=== PATIENT | male | born 1980 | race Caucasian/White ===

== ENCOUNTER 2024-09-01 17:13 | Emergency (ER) | payer OTHER, SELFPAY ==
[2024-09-01 17:30] VITALS: BP 150/94; PULSE 79; RESP 20; TEMP 36.4; O2SAT 100
--- OUTSIDE RECORDS SUMMARY | 2024-09-01 17:30 | XMS_ITS | Encounter Summary ---
Author Organization [facility] Address [address] [place] [address] Care Team Providers Care Nursery Nurse Name Role Phone Franki Scott MD Primary Care Provider [phone] Franki Scott MD Primary Care Provider [phone] Franki Scott MD Unavailable [phone] Franki Scott MD Primary Care Provider + [phone] Niki Encios NP Unavailable Encounter Details Date Type Department Care Team (Late st Contact Info) Description 10/25/2008 Orders Only [facility] Health Information Management [address] [place] [address] Scanning, Provider Social History Tobacco Use Types Packs/Day Years Used Date Smoking Tobacco: Never Assessed Sex and Gender Information Value Date Recorded Sex Assigned at Not on file 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 Gender Identity Not on file Sexual Orientation Not on file documented as of this encounter Plan of Treatment Not on file documented as of this encounter Procedures Procedure Name Priority Date/Time Associated Diagnosis Comments GI - RESULT 10/25/2008 documented in this encounter Results * GI - RESULT (10/25/2008) Anatomical Region Laterality Modality Other us Provider Scanning Edited Result - Final documented in this encounter Visit Diagnoses Not on filedocumented in this encounter Care Teams Nursery Nurse Relationship Specialty Start Date End Date Franki Scott MD [address] [place] [address] PCP - General 08/12/06 12/15/16 Franki Scott MD [address] [place] [address] PCP - General Family Medicine 12/16/16 06/17/17 Franki Scott MD [address] [place] [address] PCP - General Family Medicine 06/18/17 Franki Scott MD [address] [place] [address] 12/16/16 Niki Enciso, SHEMAR [address] [place] [address] Nurse Practitioner Nurse Practitioner 06/20/18 documented as of this encounter
--- OUTSIDE RECORDS SUMMARY | 2024-09-01 17:30 | XMS_ITS | Referral Summary ---
Author Organization [address] Address [address] [place] [address] Care Team Providers Care Land Surveyor Assistant Name Role Phone Franki Scott MD Unavailable [phone] Franki Scott MD Primary Care Provider [phone] Niki Enciso NP Unavailable [phone] Allergies Active Allergy Reactions Criticality Noted Date Comments Cat Dander Rhinitis Low 02/04/2022 Pollen Extracts Rhinitis Low 02/04/2022 Medications fluticasone (FLONASE) 50 mcg/actuation nasal spray inhale 1 spray by Intranasal route every 12 hours in each nostril 0 spray 0 6 Active multivitamin capsule Take 1 capsule by mouth daily OTC Active cetirizine (ZyrTEC) 10 mg tablet Take 1 tablet (10 mg total) by mouth daily Active dupilumab (DUPIXENT) syringe Inject 1.14 mL (200 mg total) under the skin every 14 (fourteen) days Active budesonide-formot Jimmy (SYMBICORT) 160-4.5 mcg/actuation inhaler INHALE 2 PUFFS BY MOUTH EVERY MORNING AND EVERY EVENING 10.2 g 1 4 Active Dupixent Pen pen injector 2 mL (300 mg total) 4 Active lisinopriL (PRINIVIL,ZESTRIL ) 20 mg tabletIndications :Essential hypertension TAKE 1 TABLET BY MOUTH DAILY 90 tablet 1 4 Active Active Problems Problem Noted Date Diagnosed Date Physical exam, annual 03/30/2024 Assessment & Plan (03/30/2024 8:26 AM CDT): Preventive exam; reviewed recommended preventive screenings and vaccinations. Encourage annual flu vaccine. Wear sunscreen/protective clothing when outdoors. Vitamin D deficiency 03/28/2023 Assessment & Plan (03/30/2024 8:22 AM CDT): Recommend to continue vitamin d supplement. Assessment & Plan (03/28/2023 8:39 AM CDT): Vitamin d=25, not currently taking any supplement. Will check vitamin d level with lab work. BMI 26.0-26.9,adult 02/04/2022 Assessment & Plan (03/30/2024 9:07 AM CDT): Patient with active and healthy lifestyle. Exercising regularly. Assessment & Plan (03/28/2023 8:31 AM CDT): Discussed healthy diet and importance of regular physical activity. Assessment & Plan (02/04/2022 1:48 PM CDT): Discussed healthy diet and importance of regular physical activity. BMI is acceptable for this patient. Nasal polyps 10/05/2021 Assessment & Plan (03/28/2023 8:37 AM CDT): Managed by ENT, improving with use of dupixent. Denies any recent URI or s/s of sinusitis. Assessment & Plan (10/05/2021 9:00 AM CDT): Blood allergy testing - call with results Cefdinir with a meal twice daily CT Sinus - call with results and plan surgery from there Risks and complications include anesthesia, bleeding, infection, injury to surrounding structures including brain with csf leak, eyes with vision changes, nasal mucosa, atrophic rhinitis, benign versus malignant pathology, no guarantee that sense of smell will return, need for further surgery. Continue Cetirizine and Flonase 2 sprays into each nostril while looking down over the sink, do not sniff in or blow nose after use for at least 30 minutes Skin lesion of face 01/26/2021 Assessment & Plan (01/26/2021 1:03 PM CDT): Suspicious skin lesion. Present for 2-3 years, reports intermittent bleeding. Given referral to dermatology. Fatigue 01/26/2021 Annual physical exam 01/26/2021 Assessment & Plan (03/28/2023 8:30 AM CDT): Preventive exam; reviewed recommended preventive screenings and vaccinations. Encourage annual flu vaccine. Wear sunscreen/protective clothing when outdoors. -c-scope age 45 Assessment & Plan (02/04/2022 1:49 PM CDT): 1. Eat a healthy diet: focus on lean meats and proteins, more fruits, vegetables and whole grains and low in sugars and fats. Limit red meat and avoid processed meat. 2. Maintain a healthy weight; avoid being overweight. Aim for a normal body mass index (BMI) of 18.5-24.9. Help learning to eat healthier, we can set up appointment with value stream manager/metal casket assembler. 3. Have an active lifestyle, strive for 30 minutes of moderate exercise 5 times a week and strength or resistance training at least twice a week. 4. Use broad-spectrum (UVA+UVB) sunscreen with SPF 30 or greater, is water resistant, limit time spent in the sun (10 am-4pm), wear hat, wear UV protective clothing, wear sunglasses. Never use a tanning bed. Skin that was irradiated may be more sensitive over your lifetime. 5. Does not smoke or chew tobacco. 6. Limit alcohol intake, 2 drinks per day for a man. Assessment & Plan (01/26/2021 1:06 PM CDT): Preventive exam; reviewed recommended preventive screenings and vaccinations. Encourage annual flu vaccine. Wear sunscreen/protective clothing when outdoors. Mixed hyperlipidemia 02/08/2020 Assessment & Plan (03/30/2024 9:06 AM CDT): The 10-year ASCVD risk score (Fadumo FRIED, et al., 2019) is: 2.9% Values used to calculate the score: Age: 43 years Sex: Male Is Non- : No Diabetic: No Tobacco smoker: No Systolic Blood Pressure: 112 mmHg Is BP treated: Yes HDL Cholesterol: 37 mg/dL Total Cholesterol: 233 mg/dL Reviewed labs with patient. Recommended starting a cholesterol-lowering medication. Patient with previous side effects to atorvastatin, experienced nightmares. Patient would like to further consider starting cholesterol medication and will reach out to our office if he wishes to proceed. Would recommend alternate statin. Assessment & Plan (03/28/2023 8:36 AM CDT): The 10-year ASCVD risk score (Fadumo FRIED, et al., 2019) is: 3.7% Values used to calculate the score: Age: 42 years Sex: Male Is Non- : No Diabetic: No Tobacco smoker: No Systolic Blood Pressure: 124 mmHg Is BP treated: Yes HDL Cholesterol: 36 mg/dL Total Cholesterol: 248 mg/dL Reviewed ASCVD risk 3.7%, patient with strong family history of heart disease. Previously taking lipitor, d/c about 3 years ago. Assessment & Plan (02/04/2022 2:24 PM CDT): Not on any statins. Strong family h/o CAD (both maternal & paternal) Discussed increasing fiber, fish oil. Will recheck lipid this fall. Aware that if lipid panel remains elevated--he will need statin therapy. Assessment & Plan (01/26/2021 12:40 PM CDT): Has been off statin therapy 2/2 side effects of nightmares. Personal and family h/o hyperlipidemia. Aware of increased risk of heart disease and stroke. 02/08/20 EC=783 HDL=36 HG=866 JDE=177 TC/HLD=6.8 Outstanding labs from 01/2020. Patient agreeable to blood work today, discussed medication if no improvement from previous labs. Assessment & Plan (02/08/2020 10:52 AM CDT): Has not been taking statin for some time. Strong family h/o hyperlipidemia. 03/20/18 ZX=021 HDL=34 DU=867 EGG=809 TC/HLD=6.0 02/08/20 RJ=492 HDL=36 ZA=061 IRR=618 TC/HLD=6.8 Poor diet as of late. Discussed diet changes. Had clean cardiac cath . Lab req given for repeat labs in 3 mos. Will discussed statin therapy at that time if no improvement in lipid panel. Essential hypertension 02/08/2020 Assessment & Plan (03/30/2024 9:06 AM CDT): Blood pressure is well controlled, continue present management with lisinopril. Assessment & Plan (03/28/2023 8:31 AM CDT): Condition is stable Discussed/ordered labs, encouraged healthy, low carbohydrate lifestyle and at least 150min/week of exercise, continue on lisinopril 20 mg daily. Assessment & Plan (02/04/2022 1:49 PM CDT): Lisinopril 20mg daily. The blood pressure is under good control. Ideally it should be under 130/80. Continue medications without adjustment. Continue efforts to eat well (4-5 fruits and veggies) daily and exercise for about 30 min nearly every day. Watch salt intake, keeping to less than 2000mg per day. Limit alcohol. Include strategies to cope with stress. Labs ordered today; will contact w/results once received. Assessment & Plan (01/26/2021 1:05 PM CDT): Stopped lisinopril 1 week ago. Denies any SEs while taking. Would like to work on diet and avoid medication if possible. Checking BP at home. Will call if SBP >140, DBP>90. Continue effort to improve diet-increase fruits/vegetables. Watch sodium intake <2000mg daily Labs ordered; will notify of results. Patient agreeable to restart lisinopril if elevated at home or at f/u in 6 months. Discussed consequences of untreated HTN, patient verbalized understanding. Assessment & Plan (02/08/2020 10:46 AM CDT): The blood pressure is under good control. Ideally it should be under 130/80. Continue medications without adjustment. Continue efforts to eat well (4-5 fruits and veggies) daily and exercise for about 30 min nearly every day. Watch salt intake, keeping to less than 2000mg per day. Limit alcohol. Include strategies to cope with stress. Labs ordered today; will contact w/results once received. Abnormal ECG during exercise stress test 018 Refused influenza vaccine 05/29/2018 Assessment & Plan (05/02/2019 10:38 AM CDT): Discussed and the patient refuses immunization today. Educated regarding the need to vaccinate for personal protection and to limit the viruses in the community to protect those most vulnerable. Atopic rhinitis 11/24/2013 Overview (10/14/2016): ALLERGIC RHINITIS NOS Assessment & Plan (10/05/2021 9:01 AM CDT): Blood allergy testing - call with results Cefdinir with a meal twice daily CT Sinus - call with results and plan surgery from there Risks and complications include anesthesia, bleeding, infection, injury to surrounding structures including brain with csf leak, eyes with vision changes, nasal mucosa, atrophic rhinitis, benign versus malignant pathology, no guarantee that sense of smell will return, need for further surgery. Continue Cetirizine and Flonase 2 sprays into each nostril while looking down over the sink, do not sniff in or blow nose after use for at least 30 minutes Resolved Problems Problem Noted Date Diagnosed Date Resolved Date Pelvic pain 05/01/2019 02/08/2020 Assessment & Plan (05/02/2019 10:39 AM CDT): Us pelvis complete & labs ordered. Will call w/results once rec'd. Will have completed at [facility]. Reviewed red flags; what would prompt ED for more emergent eval versus waiting for testing to be completed. Lower abdominal pain 05/01/2019 020 Assessment & Plan (05/02/2019 10:40 AM CDT): Us pelvis complete & labs ordered. Will call w/results once rec'd. Will have completed at [facility]. Reviewed red flags; what would prompt ED for more emergent eval versus waiting for testing to be completed. Dicyclomine refilled. Reports that it has helped w/cramping in past. Alternating constipation and diarrhea 05/01/2019 02/08/2020 Assessment & Plan (05/02/2019 10:41 AM CDT): Referral to [facility] GI for eval r/t alternating constipation/diarrhea. Low fiber intake. Aware to increase fiber (does not eat many vegetables/fruits), discussed otc fiber supplements. Contact info for [facility] Gi given to mr Dykes. Aware that they will call him to schedule. BMI 26.0-26.9,adult 08/02/2018 02/05/20 Assessment & Plan (01/25/2021 10:07 AM CDT): Discussed simple dietary changes and importance of regular exercise/physical activity. BMI is acceptable for patient. Assessment & Plan (02/08/2020 10:46 AM CDT): Running 1-4 miles 4x/wk. Discussed healthy diet and importance of regular physical activity. BMI is acceptable for this patient. Assessment & Plan (05/02/2019 10:38 AM CDT): BMI is acceptable for this patient. Discussed healthy diet and importance of regular physical activity. Assessment & Plan (08/02/2018 1:00 PM PROCESS TANK TENDER): BMI wnl Continue exercise and healthy diet Anxiety 05/07/2018 01/26/2021 Encounters for administrative purposes 10/25/2016 02/08/2020 Overview (12/03/2016): Encounter for administrative examinations Acute sinusitis 01/01/2016 02/08/2020 Overview (10/14/2016): Acute sinusitis with symptoms > 10 days Assessment & Plan (08/02/2018 9:16 AM PROCESS TANK TENDER): Complete antibiotics and other meds as prescribed Take OTC decongestants for congestion- Sudafed/Mucinex Motrin/Tylenol for pain/fever If you have high blood pressure or any kidney disease use Tylenol only. Take an Antihistamines like Zyrtec or Claritin or Ladan daily at bedtime for the next 2-3 weeks. Can take Benadryl at bedtime for the next 3-4 days for immediate relief of runny nose and may help with sinus headache. Try saline nasal spray irrigations 2-4 times a day or try using Diane pot as directed daily then use your Flonase or other corticosteroid nasal spray every day to decrease the swelling and inflammation in your nasal cavities. Drink plenty of water & get plenty of rest A humidifier may also help with congestion Follow up with your PCP in 3-5 days if you are not getting better Immunizations Immunization Administration Dates Next Due Influenza, Split 09/05/2013,09/05/2013 Influenza, Unspecified 03/30/2024(Deferr ed: Patient Refused),04/10/2023(Deferred: Patient Refused),03/28/2023(Deferred: Patient Refused),04/29/2022(Deferred: Patient Refused),04/10/2022(Deferred: Patient Refused),04/10/2022(Deferred: Patient Refused),02/04/2022(Deferred: Patient Refused),03/11/2021(Deferred: Patient Refused),04/10/2020(Deferred: Patient Refused),02/08/2020(Deferred: Patient Refused),05/01/2019(Deferred: Patient Refused),05/01/2019(Deferred: Patient Refused),08/02/2018(Deferred: Patient Refused),07/11/2018(Deferred: Patient Refused),05/29/2018(Deferred: Patient Refused),05/02/2018(Deferred: Patient Refused),05/02/2018(Deferred: Patient Refused),05/02/2018(Deferred: Patient Refused),02/28/2018(Deferred: Patient Refused),07/12/2017(Deferred: Patient Refused),07/12/2017(Deferred: Patient Refused),07/12/2016(Deferred: Patient Refused),07/12/2016(Deferred: Patient Refused),07/12/2016(Deferred: Patient Refused),07/11/2016(Deferred: Patient Refused) Tdkimi 06/17/2009 Social History Tobacco Use Types Packs/Day Years Used Date Smoking Tobacco: Never Smokeless Tobacco: Never Tobacco Cessation:Counseling Given: Not Answered Alcohol Use Standard Drinks/Week Comments No 0 (1 standard drink = 0.6 oz pur e alcohol) PHQ-2 Answer Date Recorded PHQ-2 Total Score (If total score is 3 or more points, staff should administer the PHQ-9) 0 03/30/2024 Sex and Gender Information Value Date Recorded Sex Assigned at Not on file 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 Gender Identity Not on file Sexual Orientation Not on file Last Filed Vital Signs Vital Sign Reading Time Taken Comments Blood Pressure 112/84 03/30/2024 7:52 AM CDT Pulse 71 03/30/2024 7:52 AM CDT Temperature 36.8 C (98.3 F) 03/30/2024 7:52 AM CDT Respiratory Rate 16 03/30/2024 7:52 AM CDT Oxygen Saturation 98% 03/30/2024 7:52 AM CDT Inhaled Oxygen Concentration - - Weight 88.9 kg (196 lb) 03/30/2024 7:52 AM CDT Height 182.9 cm (6' 0.01 ) 03/30/2024 7:52 AM CD T Body Mass Index 26.58 03/30/2024 7:52 AM CDT Plan of Treatment Not on file Insurance [facility] HMO/POS [facility] CHOICE [place] [address] [place] [address] [facility] CHOICE PLUS [facility] CHOICE PLUS Advance Directives For more information, please contact: [phone] * Full Code (Latest Code Status on File) Date Activated Date Inactivated Comments 06/20/2018 4:41 PM 06/20/2018 9:05 PM Care Teams Land Surveyor Assistant Relationship Specialty Start Date End Date Franki Scott MD [address] [place] [address] PCP - General Family Medicine 06/18/17 Franki Scott MD [address] [place] [address] 12/16/16 Niki Enciso NP [address] [place] [address] Nurse Practitioner Nurse Practitioner 06/20/18
--- OUTSIDE RECORDS SUMMARY | 2024-09-01 17:30 | XMS_ITS | Clinical Summary ---
Author Organization [address] Address [address] [place] [address] Care Team Providers Care Planning Engineer Name Role Phone Franki Scott MD Unavailable [phone] Franki Scott MD Primary Care Provider [phone] Niki Enciso NP Unavailable [phone] Allergies Active Allergy Reactions Criticality Noted Date [...] healthier, we can set up appointment with amusement park ride mechanic/manufacturing test engineer. 3. Have an active lifestyle, strive for [...] risk of heart disease and stroke. 02/08/20 DW=680 HDL=36 SZ=555 DHE=937 TC/HLD=6.8 Outstanding labs from 01/2020. Patient agreeable to blood work today, discussed medication if no improvement from previous labs. Assessment & Plan (02/08/2020 10:52 AM CDT): Has not been taking statin for some time. Strong family h/o hyperlipidemia. 03/20/18 ZX=358 HDL=34 AR=621 EMX=863 TC/HLD=6.0 02/08/20 DX=274 HDL=36 VS=288 MVB=347 TC/HLD=6.8 Poor diet as of late. Discussed [...] w/results once rec'd. Will have completed at [facility]. Reviewed red flags; what would prompt ED for more emergent eval versus waiting for testing to be completed. Lower abdominal pain 05/01/2019 020 Assessment & Plan (05/02/2019 10:40 AM CDT): Us pelvis complete & labs ordered. Will call w/results once rec'd. Will have completed at [facility]. Reviewed red flags; what would prompt ED for more emergent eval versus waiting for testing to be completed. Dicyclomine refilled. Reports that it has helped w/cramping in past. Alternating constipation and diarrhea 05/01/2019 02/08/2020 Assessment & Plan (05/02/2019 10:41 AM CDT): Referral to [facility] GI for eval r/t alternating constipation/diarrhea. Low fiber intake. Aware to increase fiber (does not eat many vegetables/fruits), discussed otc fiber supplements. Contact info for [facility] Gi given to mr Dykes. [...] activity. Assessment & Plan (08/02/2018 1:00 PM WOOD CALKER): BMI wnl Continue exercise and healthy diet Anxiety 05/07/2018 01/26/2021 Encounters for administrative purposes 10/25/2016 02/08/2020 Overview (12/03/2016): Encounter for administrative examinations Acute sinusitis 01/01/2016 02/08/2020 Overview (10/14/2016): Acute sinusitis with symptoms > 10 days Assessment & Plan (08/02/2018 9:16 AM WOOD CALKER): Complete antibiotics and other meds as prescribed [...] Refused),07/12/2016(Deferred: Patient Refused),07/12/2016(Deferred: Patient Refused),07/11/2016(Deferred: Patient Refused) Td, adsorbed 06/17/2009 Medical History Medical History Date Comments Hx Other Medical Allergies, seas onal; Comments: FRANCISCO 07/23/2014 - Family History Medical History Relation Name Comments Coronary artery disease Father Lizzie nary artery disease; Heart disease Other Heart disease; Coronary artery disease Paternal Grandfather Coronary artery disease; Relation Name Status Comments Father Alive Other Paternal Grandfather Alive Social History Tobacco Use Types Packs/Day Years [...] on file Legal Sex Male 10:57 AM WOOD CALKER Gender Identity Not on file Sexual Orientation Not on file Obstetrics History Last Filed Vital Signs Vital Sign Reading [...] 03/30/2024 7:52 AM CDT Plan of Treatment Health Maintenance Due Date Last Done Comments Hepatitis C Screening 1980 Varicella Vaccines (1 of 2 - 13+ 2-dose series) 1993 Hepatitis B Screening 1998 DTaP/Tdap/Td Vaccine (1 - Tdap) 06/18/2009 06/17/2009 Influenza Vaccine (#1) 2025 09/05/2013, 2013 Postponed from 03/11/2024 (Patient declined, but will receive in the future) Depression Screening 03/30/2025 03/30/2024, 03/28/2023, 04/29/2022, Additional history exists Regular Well Visit/Exam 18-64 03/30/2025 03/30/2024, 03/28/2023, 02/04/2022, Additional history exists HPV Vaccines Aged Out No longer eligi ble based on patient's age to complete this topic Pneumococcal vaccine <65 Aged Out No longer eligible based on patient's age to complete this topic Insurance [facility] HMO/POS Member Subscriber Plan / Payer (Ef fective 2011-Present) Name:She Dykes Relation to Subscriber:Self Name:SHE DYKES Payer ID:[id number] (NAIC) Type:MANAGED CARE OTHER Address: [address] [facility] CHOICE PLUS [facility] CHOICE PLUS Member Subscriber Plan / Payer (Ef fective 2022-Present) Name:She Dykes Relation to Subscriber:Self Name:She Dykes Payer ID:[id number] (NAIC) Type:[facility] HMO/PPO Address: [place] [id number] [facility] CHOICE PLUS Advance Directives For more information, please contact: [phone] * Full Code (Latest Code Status on File) Date Activated Date Inactivated Comments 06/20/2018 4:41 PM 06/20/2018 9:05 PM Care Teams Planning Engineer Relationship Specialty Start Date End Date Franki Scott MD [address] [place] [address] PCP - General Family Medicine 06/18/17 Franki Scott MD [address] [place] [address] 12/16/16 Niki Enciso NP [address] [place] [address] Nurse Practitioner Nurse Practitioner 06/20/18
--- OUTSIDE RECORDS SUMMARY | 2024-09-01 17:30 | XMS_ITS | Encounter Summary ---
Author Organization [facility] Address [address] [place] [address] Care Team Providers Care Bookstore Manager Name Role Phone Franki Scott MD Primary Care Provider + [phone] Franki Scott MD Primary Care Provider [phone] Franki Scott MD Unavailable [phone] Franki Scott MD Primary Care Provider + [phone] Niki Enciso NP Unavailable [phone] Encounter Details Date Type Department Care Team (Late st Contact Info) Description 09/09/2008 Orders Only [facility] [place] Health Information Management [address] [place] [address] Scanning, Provider Social History Tobacco Use Types Packs/Day Years Used Date Smoking Tobacco: Never Assessed Sex and Gender Information Value Date Recorded Sex Assigned at Not on file 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 Gender Identity Not on file Sexual Orientation Not on file documented as of this encounter Plan of Treatment Not on file documented as of this encounter Procedures Procedure Name Priority Date/Time Associated Diagnosis Comments SCAN - LABS 09/09/2008 documented in this encounter Results * SCAN - LABS (09/09/2008) us Provider Scanning Edited Result - Final documented in this encounter Visit Diagnoses Not on filedocumented in this encounter Care Teams Bookstore Manager Relationship Specialty Start Date End Date Franki Scott MD [address] [place] [id number] PCP - General 08/12/06 12/15/16 Franki Scott MD [address] [place] [address] PCP - General Family Medicine 12/16/16 06/17/17 Franki Scott MD [address] [place] [address] PCP - General Family Medicine 06/18/17 Franki Scott MD [address] [place] [address] 12/16/16 Niki Enciso NP [address] [place] [address] Nurse Practitioner Nurse Practitioner 06/20/18 documented as of this encounter
--- OUTSIDE RECORDS SUMMARY | 2024-09-01 17:30 | XMS_ITS | Encounter Summary ---
Author Organization [facility] Address [address] [place] [address] Care Team Providers Care Architectural Project Manager Name Role Phone Franki Scott MD Primary Care Provider + [phone] Franki Scott MD Primary Care Provider [phone] Franki Scott MD Unavailable [phone] Franki Scott MD Primary Care Provider + [phone] Niki Enciso NP Unavailable [phone] Encounter Details Date Type Department Care Team (Late st Contact Info) Description 01/21/2009 Orders Only [facility] [place] Health Information Management [address] [place] [address] Scanning, Provider Social History Tobacco Use Types Packs/Day Years Used Date Smoking Tobacco: Never Assessed Sex and Gender Information Value Date Recorded Sex Assigned at Not on file 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[employer] Gender Identity Not on file Sexual Orientation Not on file documented as of this encounter Plan of Treatment Not on file documented as of this encounter Procedures Procedure Name Priority Date/Time Associated Diagnosis Comments SCAN - PATHOLOGY 01/21/2009 documented in this encounter Results * SCAN - PATHOLOGY (01/21/2009) us Provider Scanning Edited Result - Final documented in this encounter Visit Diagnoses Not on filedocumented in this encounter Care Teams Architectural Project Manager Relationship Specialty Start Date End Date Franki Scott MD [address] [place] [id number] PCP - General 08/12/06 12/15/16 Franki Scott MD [address] [place] [address] PCP - General Family Medicine 12/16/16 06/17/17 Franki Scott MD [address] [place] [address] PCP - General Family Medicine 06/18/17 Franki Scott MD [address] [place] [address] 12/16/16 Niki Enciso NP [address] [place] [address] Nurse Practitioner Nurse Practitioner 06/20/18 documented as of this encounter
--- OUTSIDE RECORDS SUMMARY | 2024-09-01 17:30 | XMS_ITS | Encounter Summary ---
Author Organization [facility] Address [address] [place] [address] Care Team Providers Care Action Installer Name Role Phone Franki Scott MD Primary Care Provider + [phone] Franki Scott MD Primary Care Provider [phone] Franki Scott MD Unavailable [phone] Franki Scott MD Primary Care Provider + [phone] Niki Encios NP Unavailable [phone] Encounter Details Date Type Department Care Team (Late st Contact Info) Description 10/18/2008 Orders Only [facility] [place] Health Information Management [address] [place] [address] Scanning, Provider Social History Tobacco Use Types Packs/Day Years Used Date Smoking Tobacco: Never Assessed Sex and Gender Information Value Date Recorded Sex Assigned at Not on file 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 Gender Identity Not on file Sexual Orientation Not on file documented as of this encounter Plan of Treatment Not on file documented as of this encounter Procedures Procedure Name Priority Date/Time Associated Diagnosis Comments SCAN - RADIOLOGY/IMAGING 10/18/2008 documented in this encounter Results * SCAN - RADIOLOGY/IMAGING (10/18/2008) Anatomical Region Laterality Modality Other us Provider Scanning Edited Result - Final documented in this encounter Visit Diagnoses Not on filedocumented in this encounter Care Teams Action Installer Relationship Specialty Start Date End Date Franki Scott MD [address] [place] [address] PCP - General 08/12/06 12/15/16 Franki Scott MD [address] [place] [address] PCP - General Family Medicine 12/16/16 06/17/17 Franki Scott MD [address] [place] [address] PCP - General Family Medicine 06/18/17 Franki Scott MD [address] [place] [address] 12/16/16 Niki Enciso, SHEMAR [address] [place] [address] Nurse Practitioner Nurse Practitioner 06/20/18 documented as of this encounter
--- NOTE | 2024-09-01 17:39 | ECG_ITS ---
Test Date: 2024-09-01 17:43:33 Measurements Intervals [place] Rate: 78 P: 59 ID: [id number] QRS: 49 QRSD: 88 T: 32 QT: 352 QTc: 402 Interpretive Statements SINUS RHYTHM BORDERLINE ST-T WAVE ABNORMALITY- INFERIOR LEADS BORDERLINE ECG No previous ECG available for comparison Electronically Signed On 09-02-2024 07:01:27 SHEET MANUFACTURING SUPERVISOR by Antonino Child D.O.
--- NOTE | 2024-09-01 17:54 | ED.CHESTPAIN ---
HPI - Chest Pain General Chief Complaint: Chest Pain Stated Complaint: stomach/chest pain Source: patient Mode of arrival: ambulatory Limitations: no limitations History of Present Illness HPI narrative: Patient presents for evaluation of left-sided chest pain. Symptom onset around 1500 yesterday upon arriving for the day. Pain was initially intermittent but has been constant today since approximately 1430 after he had some steak and vegetables. He reports increase in gas production and is wondering whether he has an ulcer. He describes the pain as pinching and rates it 2/10 in severity. Pain radiates circumferentially into the left side of his back. He denies any associated cough or shortness of breath. He does have an underlying history of hypertension for which he takes lisinopril. He also has underlying hyperlipidemia which is not being treated with medication. His father had a myocardial infarction at the age of 46. Patient is a former smoker. He does not consume alcohol regularly. He does not use illicit drugs. He notices that his pain does worsen with certain movements. Related Data Home Medications ?Medication ?Instructions ?Recorded ?Confirmed ?Last Taken ?Type budesonide-formoterol HFA 160 inhalation 09/01/24 Unknown History mcg-4.5 mcg/actuation aerosol inhaler (Symbicort) lisinopril 20 mg tablet mg 09/01/24 Unknown History Allergies Allergy/AdvReac Type Severity Reaction Status Date / Time No Known Allergies Allergy Verified 09/01/24 17:37 Review of Systems Review of Systems: CONSTITUTIONAL: Denies fever, chills, or sweats. EYES: Denies visual changes, redness, or discharge. ENT: Denies rhinorrhea, congestion, sore throat, or otalgia. CARDIOVASCULAR: Reports left-sided chest pain with radiation into the left side of his back RESPIRATORY: Denies cough or dyspnea. GASTROINTESTINAL: Reports increased gas production. Denies abdominal pain, nausea, vomiting, or diarrhea. GENITOURINARY: Denies dysuria or hematuria. SKIN: Denies rash or itching. MUSCULOSKELETAL: Denies back pain, joint pain, or myalgia. NEUROLOGIC: Denies headache, numbness, dizziness, or weakness. PSYCHIATRIC: Denies anxiety or depression. [facility] Past Medical History Medical History Chronic bronchitis Hyperlipidemia Hypertension Surgical History Surgical History No pertinent past surgical history Family History Family History Father Acute myocardial infarction Coronary artery disease Social History Social History Smoking status: Former smoker Tobacco type: cigarettes Substance use: never Living arrangements: with family Gender identity (if verbalized by the patient): Male Sexual Orientation (if Verbalized by the Patient): Straight or Heterosexual Spiritual care concerns: No Exam Narrative: GENERAL: Well-appearing, well-nourished, and in no acute distress. HEAD: Normocephalic, atraumatic. EYES: PERRLA and EOMI. ENT: Nares clear, no rhinorrhea or epistaxis. Mucous membranes moist. Oropharynx without tonsillar hypertrophy exudate or other lesions. Bilateral TMs pearly aleman nonbulging NECK: Supple. No adenopathy or masses. No carotid bruits or JVD CHEST: Clear to auscultation. No respiratory distress. No wheezes rales or rhonchi HEART: Regular rate and rhythm. No murmur heard. Normal peripheral pulses. ABDOMEN: Soft, nontender, nondistended, normal active bowel sounds. EXTREMITIES: Normal range of motion. No edema. SKIN: Warm, dry, no rash. NEURO: No focal deficits. Alert and oriented x3. PSYCH: Normal mood and affect. Course Course Emergency Course: This is a 44-year-old male who presented for evaluation of left-sided chest pain. Based upon his reported history it seems like his symptoms are GI in origin. However he does have risk factors for coronary artery disease including hypertension, hyperlipidemia, former smoking status and family history. I recommended he be transferred to the hospital for further evaluation. [facility] is his facility of choice. I contacted [facility] and spoke with physician back office medical assistant, Harmony Garcia. She indicates that Dr Holm will accept pt to the Dept there. Pt transferred via private vehicle. Level of Care: Express Care Visit Vital Signs Vital signs: Vital Signs Temperature 36.4 C 09/01/24 17:30 Pulse Rate 79 09/01/24 17:30 Respiratory Rate 20 09/01/24 17:30 Blood Pressure 150/94 H 09/01/24 17:30 Pulse Oximetry 100 09/01/24 17:30 Oxygen Delivery Room Air 09/01/24 17:30 Temperature 36.4 C 09/01/24 17:30 Pulse Rate 79 09/01/24 17:30 Respiratory Rate 20 09/01/24 17:30 Blood Pressure 150/94 H 09/01/24 17:30 Pulse Oximetry 100 09/01/24 17:30 Oxygen Delivery Room Air 09/01/24 17:30 MDM - Chest Pain ECG Data EKG #1: ECG completion date: 09/01/24 ECG completion time: 17:43 Interpretation: Sinus rhythm, rate 70, nonspecific T-wave changes Discharge Plan Discharge Clinical Impression: Chest pain Patient Disposition: Acute Care Hospital Condition: Stable Instructions: Chest Pain (ED) Patient Language: Mauritian Prescriptions: No Action lisinopril 20 mg tablet budesonide-formoterol [Symbicort] 160-4.5 mcg/actuation HFA aerosol inhaler INHALATION Follow-up/Referrals: Harms,Franki Toro M.D. [Primary Care Provider] - Time of Disposition: 17:54
== END 2024-09-01 17:59 | disposition short-term general hospital (02) ==
PROVIDERS: Emergency Provider Nurse Practitioner; PCP Family Medicine
DX: R07.9 Chest pain, unspecified (principal); Z87.891 Personal history of nicotine dependence; I10 Essential (primary) hypertension; E78.5 Hyperlipidemia, unspecified
CPT/HCPCS: 93005; 99213; G0463